=== PATIENT | male | born 1985 | race Caucasian/White ===

== ENCOUNTER 2016-07-31 06:31 | Inpatient (IN) | payer OTHER, MEDICAID ==
[~2016-07-31] VITALS: Ht 175.3 cm; Wt 79.5 kg
[2016-07-31 06:35] VITALS: BP 130/79; PULSE 120; RESP 18; O2SAT 97
--- NOTE | 2016-07-31 06:54 | ED.REPORT ---
HPI-Psychiatric Illness Date of Service Jul 31, 2016 ED Provider: Mkie Tobin DO Mr. Bradford is a 30 y/o man who presents today for mental evaluation. He reports a history of schizophrenia. "I'm ill." "I need a mental health eval." He has visual hallucinations. "I have cool stuff on my hands." He currently does not have auditory hallucinations. He does not have suicidal or homicidal ideation right now. He cut his wrist intentionally a few months ago but states that he did not want to kill himself and only hurt himself. No IV drug use today. Last IV drug use 3 months ago. He was released from assisted today and he was there for 29 days. HE vomited around 1:00 AM, no blood in his vomit. He has diarrhea at 3: 00 AM, no blood in his stool. He is not bleeding anywhere. Runny nose. He has been taking Zyprexa, but is unable to provide who was prescribing it. He is supposed to meet with someone from [facility] tomorrow. He reports that he has a place to stay right now. "I need marijuana." He has papers with him from [facility] about group homes and homeless shelters. Nursing Notes Stated Complaint: MENTAL EVAL Chief Complaint: Psychiatric Complaint Nursing Notes Reviewed: Yes Allergies: Coded Allergies: No Known Allergies (Unverified , 07/31/16) General Time Seen by MD: 06:49 Chief Complaint Hallucinations, visual Hx Obtained From: Patient Associated with: Reports: Agitation, Anxiety, Denies: Fever, Illicit drug use, Incoherence, Violence Risk-Psychiatric Illness Suicide Risk Stratification Suicide Risk Factors - Adult: : Prior psych admission: Substance abuse ( marijuana)No: Access to firearms, Alcohol use, Close associate suicide, Family Hx of Suicide, Previous attempt RF Statements: Risk factors reviewed Past Medical History Past Medical History Substance abuse Past Surgical History None reported Smoking History Current Every Day Smoker Social History Alcohol Use: Denies alcohol use Drug Use: Meth Ambulatory Status Independent Review of Systems Basic Review of Systems Eyes: No discharge ENT: No nasal congestion, No pharyngeal pain : No dysuria Musculoskeletal: No extremity pain Hematologic: No bleeding Allergy / Immune: No allergy Constitutional: Denies: Chills, Fever Respiratory: Denies: Non-productive cough, Shortness of breath Cardiovascular: Denies: Chest pain GI: Reports: Abdominal pain (periumbilical yesterday, resolved), Diarrhea, Vomiting, Denies: Constipation Neurologic: Denies: Headache Psychiatric: Reports: Anxiety, Hallucinations, auditory, Hallucinations, visual , Denies: Suicidal ideation Physical Exam Initial Vital Signs Vital Signs (First) Date Time Temp Pulse Resp B/P Pulse Ox O2 Delivery O2 Flow Rate FiO2 07/31/16 06:35 37.1 120 18 130/79 97 Room Air Initial VS: Reviewed Head / Eyes: Atraumatic, Normocephalic, PERRL ENT: Mucous membranes moist, Conjunctiva normal, No scleral icterus Neck: Supple, Non-tender, Full range of motion Respiratory: Breath sounds normal, Clear to auscultation, No respiratory distress Cardiovascular: Regular rate & rhythm, Heart sounds normal, Intact distal pulses Abdomen / GI: Soft, Non-tender, No guarding, No rebound, No distention Lymphatic: No lymphadenopathy Extremities: Vascular intact, Neuro intact, No swelling, No tenderness Skin: Warm, Dry, No cyanosis Psychiatric: Not suicidal, Not homicidal Abnormal Mood/Affect: Positive: Anxious, Flight of ideas Abnormal Thinking / Perception: Positive: Hallucinations, visual (seeing things on his hands), Tangential thinking Interpretation & Diagnostics Interpretation & Diagnostics: Urine tox dip: Benzodiazepines (BZO) Negative Barbituates (BAR) Negative Cocaine (JEANNETTE) Negative Marijuana (THC) Positive Methamphetamine (MET) Negative Opiates (OPI) Negative Methadone (MTD) Negative Tricyclic Antidepressants (TCA) Negative Oxycodone (OXY) Negative Ecstasy (MDMA) Negative Phencyclidine (PCP) Negative Amphetamines (AMP) Negative Alcohol breathilizer: 0 Lab Results Interpretation Result Diagram: 07/31/16 0706 07/31/16 0706 Test 07/31/16 07:06 White Blood Count 12.3th/mm3 (3.8-10.1) Red Blood Count 3.83mil/mm3 (4.40-5.80) Hemoglobin 11.7g/dL (13.8-17.2) Hematocrit 34.9% (41.0-50.0) Mean Corpuscular Volume 91.1fL (81-100) Mean Corpuscular Hemoglobin 30.5pg (27.0-35.0) Mean Corpuscular Hemoglobin Concent 33.5% (32.0-37.0) Red Cell Distribution Width 11.8% (12.3-15.4) Platelet Count 178bil/L (150-400) Neutrophils (%) (Auto) 67.4% (40-74) Lymphocytes (%) (Auto) 16.2% (14-46) Monocytes (%) (Auto) 14.1% (4-12) Eosinophils (%) (Auto) 1.7% (0-5) Basophils (%) (Auto) 0.4% (0-3) Sodium Level 144mEq/L (134-144) Potassium Level 3.9mEq/L (3.5-5.2) Chloride Level 105mEq/L (97-108) Carbon Dioxide Level 27mmol/L (18-29) Blood Urea Nitrogen 14mg/dL (6-20) Creatinine 0.95mg/dL (0.76-1.27) Estimat Glomerular Filtration Rate 100mL/min (>59) Glucose Level 110mg/dL (60-99) Calcium Level 9.0mg/dL (8.5-10.1) Total Bilirubin 0.2mg/dL (0.0-1.2) Aspartate Amino Transf (AST/SGOT) 49U/L (0-50) Alanine Aminotransferase (ALT/SGPT) 62U/L (0-44) Alkaline Phosphatase 69U/L (25-150) Total Protein 6.5g/dL (6.4-8.4) Albumin 4.0g/dL (3.4-5.0) Thyroid Stimulating Hormone (TSH) 3.500uIU/mL (0.450-4.500) Hold Gracia Top Tube Received (Received) Re-Eval/Medical Decision Med Decision/Clinical Course 1. Visual hallucinations/acute psychosis -FERRY PILOT consultation -Awaiting possible inpatient admission -CBC shows mildly elevated WBC and mildly low RBC, Hgb, HCT. Pt does not report any bleeding. -CMP normal except for mildly elevated ALT -UDS is positive for marijuana -Alcohol breathilizer is 0 Consultation : Consulted With: dairy feed worker DDx: schizophrenia, schizoaffective disorder, acute psychosis, bipolar disorder, substance abuse, medication noncompliance, anxiety, depression, personality disorder Discharge & Departure Impression: Primary Impression: Bipolar disorder Active/Remission status: currently active Psychotic features: with psychotic features )( Condition at Discharge: Clear for psych facility Referrals: NOPCP (PCP) Care Transferred to: [facility] Transferred at: 15:00 Attending Statement The patient was seen and examined together with Dr. Meraz on 07/31/16 and I have added additional information to the note above Tabitha Meraz DO Jul 31, 2016 06:54 Mike Tobin DO Jul 31, 2016 14:56
[2016-07-31 07:22] LABS: BASOPHILS % (AUTO) 0.4 % (0-3); EOSINOPHILS % (AUTO) 1.7 % (0-5); MONOCYTES % (AUTO) 14.1 % (4-12); Mean Corpuscular Hemoglobin 30.5 pg (27.0-35.0); Mean Corpuscular Volume 91.1 fL (81-100); NEUTROPHILS % (AUTO) 67.4 % (40-74); Platelet Count 178 bil/L (150-400)
[2016-07-31 12:34] VITALS: BP 118/74; PULSE 95; O2SAT 99
[2016-07-31] MEDS ORDERED: OLAN20TA16 PO (15:13)
[2016-07-31 19:32] VITALS: BP 116/68; PULSE 89; RESP 16; O2SAT 98
[2016-07-31] MEDS ORDERED: Alum-Mag Hydrox-Simeth 30 mL Suspension PO PRN (22:50)
[2016-07-31] MEDS ORDERED: Magnesium Hydroxide 10 mL Oral Concentration PO PRN (22:50)
[2016-07-31] MEDS ORDERED: hydrOXYzine Pamoate 25 mg Capsule PO PRN (22:50)
--- NOTE | 2016-08-01 04:03 | NUR ---
Nursing Admit note. Pt noted to arrive from our ED via WC with security and [facility]HA at 2049. Pt is a voluntary status with approval of six days by AMBRE Becker with review of the of this month. Pt recently out of [facility] after 29 days. Reportedly pt has been paying off fines for probation crimes and for robbery and methamphetamine possession. Pt reports increased A/V hallucinations over the last couple of months. Pt has history of Schizophrenia. Patients only medicaiton at this time was started in [facility], Zyprexa 20mg QD HS. Pt presents manic, grandiose, tangential thinking and responding to internal stimuli. speaks with very soft voice with obvious difficulty tracking conversation. Pt signed all admission paper work in ED with MHA and assisted with nursing assessment to his best ability. Pt to sleep at 2214 after requesting and receiving snacks. Pt medicated with Zyprexa in ED prior to transfer. Pt reports he has a home to go to after discharge in [place] and sees a stippler here in [facility] through [facility] Patient rates anxiety=3/10, Depression 4/10, denies Si/Hi ideation, sleeps 6-8 hours daily, smokes 1ppd, and very much wants help with medication titration.
--- NOTE | 2016-08-01 05:07 | NUR ---
Observations 1900 to 0700 Pt arrived on the floor at 20:50 and was able to compete the entire intake process. Pt ate multiple snacks before going to his room for the night. Pt was social when he was out in the DR. Pt first appeared asleep at 22:15 and was observed every 15 minutes through the night as directed.
[2016-08-01 10:36] VITALS: BP 139/82; PULSE 106; RESP 16
--- NOTE | 2016-08-01 12:38 | NUR ---
Nursing Day Shift- S- "I'm fine." O- Pt. was asleep at the start of the day shift. He awoke for breakfast after sleeping a reported 7+ hours. Pt. initially appeared cooperative and social. He eat well. about noon Pt. was asked again how he was doing, at that time he gave a brief delayed response, while appearing vigilant then watchful of staff. Ativan and Zyprexa was offered and declined. Pt. returned to his room and could be heard appearing to respond to internal stimulation while yelling and swearing. A- Increased paranoia and agitation. Declining offered PRN medications. P- Cont. to monitor closely. Inform MD when he is available. Addendum: 08/01/16 at 1349 by ANGEL HAWKINS RN Pt. has requested AMA discharge from the MD.
--- NOTE | 2016-08-01 15:29 | NUR ---
Case Management/UR: Spoke with DOC Jewelry Finisher Tye Short and verified that pt. is admitted. Evangelina Randle RN
[2016-08-01] MEDS: LORazepam 1 mg Tablet PO PRN (16:08)
[2016-08-01] MEDS ORDERED: Benzocaine-Menthol Lozenge 2/Pkg PO PRN (17:00)
--- NOTE | 2016-08-01 18:26 | NUR ---
Observations 0900 to 2130 Pt affect and mood was anxious, ambivalent, unpredictable and preoccupied. Pt speech and eye contact was poor. Pt was in [place] most of the day. Pt declined to attend group and unit activities. Pt attended community meeting and set a daily goal. Pt stated that his goal was to stay positive. Pt was unsocial with staff and peers. Pt paced the hallway listening to music on the headphones. Pt attended meals in D.R. and ate 100% of all meals. Pt ate snacks. Pt maintained behavior throughout the shift. Pt was polite, pleasant and cooperative. Pt was observed every 15 minutes throughout the shift as ordered.
--- NOTE | 2016-08-01 19:06 | HP ---
[address] [address] HISTORY AND PHYSICAL PATIENT: TONNY COYLE : 1985 MR#: [id number] ADMIT: 07/31/2016 JOB ID: [id number] DATE: 07/31/2016 IDENTIFYING DATA: The patient is a 30-year-old male who presented with delusions following recent discharge from [facility] and was requesting voluntary admission. The patient was subsequently admitted on a voluntary basis to the [facility]. CHIEF COMPLAINT: "I want to give a test drive on Ritalin, I think I needed it and instead I went to long-term. I need Ritalin. I have been through a lot. I hear voices but they are real. Throughout the day it is easier to defend myself with marijuana with my good principles." HISTORY OF PRESENT ILLNESS: The patient is a somewhat difficult historian and is focused on obtaining either Ritalin or Adderall. According to the emergency department social work notes, the patient reported having an "attention disability device" implanted into his head. 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 The patient apparently called once to [facility] in [place] on June 05, 2016 after release from [facility] but had not made further contact. He also was seen in the emergency department on June 26, 2016 for a fit for detention evaluation and was taken to the [facility] once medically cleared. The patient reports that he was recently released from the [facility]. He was initially started on olanzapine 10 mg in the detention and titrated to 20 mg at bedtime. He reports that he has taken this medication throughout his stay at the [facility]. He denies symptoms of bipolar disorder or PTSD. Regarding depression, he states "People are being very negative about my past." He also states that he "hates pornography." He reports his sleep is all right, his appetite is increased and his energy is decreased. PAST PSYCHIATRIC HISTORY: Outpatient: He is followed by [facility] and his telephonic case manager is Vega Alex. Inpatient: He reports 2-4 hospitalizations including this one. He reports also being housed in the special offender unit at [facility] for two and a half years. While he was there, he received aripiprazole 15 mg. Past psychiatric medications have included aripiprazole, citalopram, olanzapine, divalproex, risperidone and quetiapine. He reported that he did not like these medications or they were ineffective and would not take them again. He does report that he would like a trial of Adderall and Ritalin. He reports a couple of suicide attempts in the past. His 1st when he was 20 when he planned to shoot himself but did not. Two to three months ago, he cut his left wrist while in detention which required suturing. He denies a history of deliberate self- injurious behavior outside of the above. FAMILY PSYCHIATRIC HISTORY: Unknown. There is no family history of completed suicide. Family history of substance use is significant for alcohol. Family medical illness significant for a mother with cancer. SUBSTANCE USE HISTORY: The patient reports using marijuana the night prior to admission and a few months before that. He knowledges that this is in violation of his parole. He did inform his policy officer of same. He denies cocaine. He reports his last methamphetamine was two months ago. He denies any LSD or psilocybin mushrooms. He does endorse IV drug abuse in the past and reports that he tested negative for HIV and hepatitis. His last substance use treatment was eight years ago. SOCIAL HISTORY: The patient was born in [place], [place] and raised in [place] when his parents moved there when he was 10. He has one brother and two sisters and is the 2nd oldest child. He went through the 11th grade and got a GED and would eventually like to become a travel physical therapist or general dentist. He reported being a loner while in high school. He has never been and is not currently in a relationship, but he has a 12 or 13-year-old boy which he had when he was 18. The child lives with his mother and he had no contact. 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 He receives [facility] funding of approximately 200 dollars plus food stamps per month. He reports that he may have DOC housing in [place] in the next few days. He denies a history of physical, sexual or emotional abuse. LEGAL HISTORY: Significant for convictions for robbery in the 1st degree, robbery in the second-degree, assault in the 3rd degree two counts, and possession of a controlled substance one count. He is currently on DOC probation for a robbery in the 1st degree and possession of controlled substance for the next 16 months. PAST MEDICAL HISTORY: He reports spine injuries six years ago while in detention. He reports otherwise being healthy. 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 He would not specify how these occurred. LABORATORY FINDINGS: CBC within normal limits except for WBC of 12.3, RBCs 3.83, hemoglobin 11.7, hematocrit 34.9, RDW 11.8, monocytes 14.1%. CMP within normal limits except for a glucose of 110, an ALT of 62, TSH of 3.5. Urine tox screen was positive for marijuana. Breathalyzer was 0. CURRENT MEDICATIONS: Olanzapine 20 mg nightly. ALLERGIES: No known drug allergies. MENTAL STATUS EXAMINATION: Appearance: The patient is a somewhat unkempt-appearing male with unwashed appearing hair but is clean-shaven. He is wearing hospital issue pants and a sweatshirt with the cameron pulled up over his head exposing only his face and some hair. Behavior: The patient is initially fairly pleasant with good eye contact. When informed that he would not receive Adderall or Ritalin due to his psychotic disorder, he stated that he would like to be discharged and terminated the interview. After speaking with his DOC officer, he returned to complete the interview. Mood: "A little decent." Affect: Smiles inappropriately. Speech: Poverty of speech at times, at others circumstantial and rambling. Content of thought: He denies suicidal or homicidal ideation. The patient endorses auditory hallucinations, telepathy and thought broadcasting. He denies thought insertion or thought withdrawal. He endorses ideas of reference regarding the television where they can "project their thoughts directly from the TV." He denies visual hallucinations. He reports his anxiety is 8 to 9/10 and his depression is 4/10. Thought processes: Somewhat disorganized at times, at others more goal- directed. Overall poverty of speech. Insight: Poor. Judgment: Impaired. Memory: Unable to be assessed but grossly intact. Concentration: Unable to be assessed, but grossly intact. Intelligence: Appears to be in the average range based upon history and vocabulary. Orientation: He is alert and oriented to [facility]. Sensorium: Overall intact without clear evidence of delirium or dementia. IMPRESSION: The patient is a 30-year-old male with a history of methamphetamine and marijuana use who also appears to have a chronic psychotic disorder consistent with schizophrenia or schizoaffective disorder possibly bipolar type. There is also an indication he may have depression, although he does not appear depressed at this time. The patient initially terminated the interview early with a request to leave AMA, spoke with his DOC sponsor and requested to remain in the hospital. We discussed the risks and benefits of starting Geodon or ziprasidone and the patient was agreeable. We discussed cross tapering from olanzapine to ziprasidone and he again was agreeable. PROVISIONAL DIAGNOSES: [place] I 1. Psychotic disorder, unspecified. 2. Methamphetamine use disorder. 3. Marijuana use disorder. [place] II Deferred. [place] III None acute. [place] IV Moderate. [place] V Global Assessment of Functioning 25. PLAN: 1. The patient will be admitted to the inpatient unit and will be provided a safe and secure environment. 2. The patient is currently denying acute active suicidality and is not in need of one-to-one at this time. He agrees to notify us should he have any acute suicidal or homicidal ideation. 3. The patient is encouraged to participate with group and milieu activities. 4. The patient will be seen by the treatment team on a daily basis to assess symptoms, side effects and response to treatment. 5. Olanzapine will be decreased to 10 mg nightly. 6. Ziprasidone 60 mg twice daily will be started. The patient was provided informed consent including the risk of tardive dyskinesia and metabolic syndrome. 7. The patient will not be started on amphetamines given his acute psychosis as well as history of methamphetamine use. 8. Zolpidem 5 mg p.o. nightly p.r.n. insomnia. May repeat x1. 9. Lorazepam 1-2 mg q.4 h. p.r.n. anxiety or agitation. 10. Anticipated length of stay is 5-7 days. MTDD
--- NOTE | 2016-08-01 22:47 | NUR ---
Nursing Notes [id number] O: Visible on unit, but not interacting with peers. Walking with head phones on. A: Quiet, restless, cooperative, disorganized, tense at times. No outbursts this shift. P: Monitor for response to treatment/medications. Q15 min checks for safety. Follow plan of care.
--- NOTE | 2016-08-02 04:38 | NUR ---
nursing, nights, 11-7 s/o- has appeared to sleep after 2129 during q 15 minute assessments. a- no apparent distress. p- monitor behavior/emotional state, quality, times and amount of sleep, use and effect of medication. rosetta
--- NOTE | 2016-08-02 05:28 | NUR ---
Out on unit some. Pt noted being more positive with med changes. Asleep at 2130. Pt observed every 15 minutes as ordered.
[2016-08-02 08:10] VITALS: BP 120/79; PULSE 86; RESP 18
[2016-08-02] MEDS: LORazepam 1 mg Tablet PO PRN (09:45)
--- NOTE | 2016-08-02 12:51 | NUR ---
Nursing Day Shift- S- "Maybe I'll go today. I would go to [facility]. Let me call first and see." O- Pt. had slept 8+ hours per report. He was in the DR watching TV before breakfast. He eat well, then walked in the hallways while listening to music. Pt. requested discharge from the [facility]. Pt. stated the above when asked if would like to discharge. He was unable to confirm housing. Pt. spoke with the MD, and agreed to stay. He requested and was given Ativan 2 mg at 0945 for anxiety he rated as "Bad." The Pt. later reported it had been helpful. Pt. had brief responses, and did not answer questions about hallucinations. A- Pt. appears tense and paranoid. Able to tend to his housing and ADL's apropriately. P- Cont. BHTP. Addendum: 08/02/16 at 1516 by ANGEL HAWKINS RN Pt. was able to contact his president and chief operating officer. Plans were made for Pt's discharge today at 1530. He will be transported by Tye Short, to [facility], then [facility] for housing. Pt. expressed an understanding of the follow up plans and medications. He will be sent out with the prescriptions. He rated his anxiety as 2/10 and denied suicidal thoughts. The prescription will be handed over to the president and chief operating officer.
--- NOTE | 2016-08-02 14:20 | PCM.DIMED ---
Discharge Instructions Date of Service Aug 02, 2016 Dates of Hospitalization Jul 31, 2016 at 20:01 Discharge Diagnosis Discharge Diagnosis [place] I 1. Psychotic disorder, unspecified. 2. Methamphetamine use disorder. 3. Marijuana use disorder. [place] II Deferred. [place] III None acute. [place] IV Moderate. [place] V Global Assessment of Functioning 40. Test Results Laboratory Tests 72 Hours Test 07/31/16 07:06 White Blood Count 12.3th/mm3 (3.8-10.1) Red Blood Count 3.83mil/mm3 (4.40-5.80) Hemoglobin 11.7g/dL (13.8-17.2) Hematocrit 34.9% (41.0-50.0) Mean Corpuscular Volume 91.1fL (81-100) Mean Corpuscular Hemoglobin 30.5pg (27.0-35.0) Mean Corpuscular Hemoglobin Concent 33.5% (32.0-37.0) Red Cell Distribution Width 11.8% (12.3-15.4) Platelet Count 178bil/L (150-400) Neutrophils (%) (Auto) 67.4% (40-74) Lymphocytes (%) (Auto) 16.2% (14-46) Monocytes (%) (Auto) 14.1% (4-12) Eosinophils (%) (Auto) 1.7% (0-5) Basophils (%) (Auto) 0.4% (0-3) Sodium Level 144mEq/L (134-144) Potassium Level 3.9mEq/L (3.5-5.2) Chloride Level 105mEq/L (97-108) Carbon Dioxide Level 27mmol/L (18-29) Blood Urea Nitrogen 14mg/dL (6-20) Creatinine 0.95mg/dL (0.76-1.27) Estimat Glomerular Filtration Rate 100mL/min (>59) Glucose Level 110mg/dL (60-99) Calcium Level 9.0mg/dL (8.5-10.1) Total Bilirubin 0.2mg/dL (0.0-1.2) Aspartate Amino Transf (AST/SGOT) 49U/L (0-50) Alanine Aminotransferase (ALT/SGPT) 62U/L (0-44) Alkaline Phosphatase 69U/L (25-150) Total Protein 6.5g/dL (6.4-8.4) Albumin 4.0g/dL (3.4-5.0) Thyroid Stimulating Hormone (TSH) 3.500uIU/mL (0.450-4.500) Hold Gracia Top Tube Received (Received) Diet No restrictions Activity No restrictions Patient Instructions Should you have any thoughts of harming yourself or others, please call the crisis line, your provider, 911, or go to the nearest Emergency Department. Do not change or discontinue your medications without discussing with your provider. You have been given a prescription for 14 days supply of your medication Follow-up plan Please follow counselor discharge instructions. Your OR spring encaser is Minerva Lopez. Follow-up with PCP in: 1 week ([facility]) Johan Pérez MD Aug 02, 2016 14:20
[2016-08-02] MEDS ORDERED: ZIPR40CA2 PO (14:22)
[2016-08-02] MEDS ORDERED: OLAN5TAB PO (14:22)
[2016-08-02] MEDS ORDERED: HYDR-3797 PO (14:22)
--- NOTE | 2016-08-02 15:25 | NUR ---
Nurses Discharge Note Patient discharged with all belongings,follow-up appointments and prescriptions. Patient was picked up by his event security officer in good spirits and control.
--- NOTE | 2016-08-02 18:13 | PCM.DC.MED ---
Discharge Summary Date of Service Aug 02, 2016 Dates of Hospitalization Date of Hospital Admission Jul 31, 2016 at 20:01 Date of Discharge: Aug 02, 2016 Providers: Admitting Physician: Johan Hendricks MD Primary Care Physician: Sin Attending Physician: Johan Hendricks MD Diagnosis at Time of Discharge Diagnosis at Time of Discharge [place] I 1. Psychotic disorder, unspecified. 2. Methamphetamine use disorder. 3. Marijuana use disorder. [place] II Deferred. [place] III None acute. [place] IV Moderate. [place] V Global Assessment of Functioning 40. Brief History IDENTIFYING DATA: The patient is a 30-year-old male who presented with delusions following recent discharge from [facility] and was requesting voluntary admission. The patient [facility] CHIEF COMPLAINT: "I want to give a test drive on Ritalin, I think I needed it and instead I went to [facility]. I need Ritalin. I have been through a lot. I hear voices but they are real. Throughout the day it is easier to defend myself with marijuana with my good principles." HISTORY OF PRESENT ILLNESS: The patient is a somewhat difficult historian and is focused on obtaining either Ritalin or Adderall. According to the emergency department social work notes, the patient reported having an "attention disability device" implanted into his head. 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 The patient apparently called once to [facility] in [place] on June 05, 2016 after release from [facility] but had not made further contact. He also was seen in the emergency department on June 26, 2016 for a fit for alf evaluation and was taken to the [facility] once medically cleared. The patient reports that he was recently released from the [facility]. He was initially started on olanzapine 10 mg in the alf and titrated to 20 mg at bedtime. He reports that he has taken this medication throughout his stay at the [facility]. He denies symptoms of bipolar disorder or PTSD. Regarding depression, he states "People are being very negative about my past." He also states that he "hates pornography." He reports his sleep is all right, his appetite is increased and his energy is decreased. PAST PSYCHIATRIC HISTORY: Outpatient: He is followed by [facility], [place] and his disease case manager is Vegalaura Alex. Inpatient: He reports 2-4 hospitalizations including this one. He reports also being housed in the special offender unit at [facility] for two and a half years. While he was there, he received aripiprazole 15 mg. Past psychiatric medications have included Aripiprazole, citalopram, olanzapine, divalproex, risperidone and quetiapine. He reported that he did not like these medications or they were ineffective and would not take them again. He does report that he would like a trial of Adderall and Ritalin. He reports a couple of suicide attempts in the past. His 1st when he was 20 when he planned to shoot himself but did not. Two to three months ago, he cut his left wrist while in alf which required suturing. He denies a history of deliberate self- injurious behavior outside of the above. Hospital Course The patient initially terminated the interview early with a request to leave AMA , spoke with his DOC sponsor and requested to remain on the unit. We discussed the risks and benefits of ziprasidone including tardive dyskinesia and metabolic syndrome and the patient was agreeable to a cross taper. He was initiated on ziprasidone 60 mg twice daily and olanzapine was reduced to 10 mg nightly. The following day, the patient reported that he was "feeling good, feeling focused." He denied side effects or restlessness. He reported that he could "barely hear them" regarding auditory hallucinations. We discussed increasing ziprasidone to 80 mg twice daily and reducing olanzapine to 5 mg at bedtime. Regarding his prior report of having gills, he denied this. Regarding reporting being a hybrid, he stated that he was "a hybrid, a higher state human being." At the time of discharge, the patient was reporting his mood was "good." Sleep was reported as "good," 8+ hours per staff. Appetite was reported as "good." His anxiety was reported as "apple high because I do not know where I am going to go." And depression as "a little bit". Regarding auditory hallucinations, he stated, "barely heard them all day." He denied visual hallucinations and any thought, intent or plan of hurting himself or others. He denied medication side effects. Exam Vital Signs (Last) Date Time Temp Pulse Resp B/P Pulse Ox O2 Delivery O2 Flow Rate FiO2 08/02/16 08:10 36.6 86 18 120/79 07/31/16 19:32 98 Room Air Exam Discharge Mental Status Exam: Appearance: appropriately dressed and groomed. Behavior: pleasant, cooperative, good eye contact. Speech: Normal rate, rhythm and tone. Mood: "Good" Affect: Appropriate Thought Processes: organized, linked and linear Thought content: denied current suicidal ideation, or homicidal ideation, visual hallucinations. Endorsed auditory hallucinations as above. Delusions as noted above. Insight/judgment: insight and judgment appear to be improving. Intelligence: average range based on vocabulary and history. Memory/concentration: grossly intact, but not formally tested Sensorium: alert, oriented, no signs of delirium or dementia.. Physical Examination: AIMS Score 0 Test 07/31/16 07:06 White Blood Count 12.3th/mm3 (3.8-10.1) Red Blood Count 3.83mil/mm3 (4.40-5.80) Hemoglobin 11.7g/dL (13.8-17.2) Hematocrit 34.9% (41.0-50.0) Mean Corpuscular Volume 91.1fL (81-100) Mean Corpuscular Hemoglobin 30.5pg (27.0-35.0) Mean Corpuscular Hemoglobin Concent 33.5% (32.0-37.0) Red Cell Distribution Width 11.8% (12.3-15.4) Platelet Count 178bil/L (150-400) Neutrophils (%) (Auto) 67.4% (40-74) Lymphocytes (%) (Auto) 16.2% (14-46) Monocytes (%) (Auto) 14.1% (4-12) Eosinophils (%) (Auto) 1.7% (0-5) Basophils (%) (Auto) 0.4% (0-3) Sodium Level 144mEq/L (134-144) Potassium Level 3.9mEq/L (3.5-5.2) Chloride Level 105mEq/L (97-108) Carbon Dioxide Level 27mmol/L (18-29) Blood Urea Nitrogen 14mg/dL (6-20) Creatinine 0.95mg/dL (0.76-1.27) Estimat Glomerular Filtration Rate 100mL/min (>59) Glucose Level 110mg/dL (60-99) Calcium Level 9.0mg/dL (8.5-10.1) Total Bilirubin 0.2mg/dL (0.0-1.2) Aspartate Amino Transf (AST/SGOT) 49U/L (0-50) Alanine Aminotransferase (ALT/SGPT) 62U/L (0-44) Alkaline Phosphatase 69U/L (25-150) Total Protein 6.5g/dL (6.4-8.4) Albumin 4.0g/dL (3.4-5.0) Thyroid Stimulating Hormone (TSH) 3.500uIU/mL (0.450-4.500) Hold Gracia Top Tube Received (Received) Discharge Medications Discharge Medications Olanzapine (Olanzapine) 5 Mg Tablet 5 MG PO HS Prescribed by: JOHAN HENDRICKS MD Ziprasidone (Geodon) 40 Mg Capsule 80 MG PO BIDWM Prescribed by: JOHAN HENDRICKS MD As needed Hydroxyzine Pamoate (HydrOXYzine Pamoate) 25 Mg Capsule 50 MG PO Q4H PRN PRN anxiety/agitation/insomnia Prescribed by: JOHAN HENDRICKS MD Followup Plan Disposition: The patient was requesting discharge with no indication for referral to [facility] for involuntary hospitalization The patient verbally consented to take the prescribed medications. The patient verbally expressed understanding of the risks, benefits, alternative treatment options, and risks of not taking the prescribed medication. The patient verbally expressed understanding of the medication instructions, that he will adhere to the prescribed medication, and that Follow-up plan Please follow counselor discharge instructions. Your OR disease case manager is Minerva Lopez. Discharge Diet: No restrictions Discharge Activity: No restrictions Patient Instructions Should you have any thoughts of harming yourself or others, please call the crisis line, your provider, 911, or go to the nearest Emergency Department. Do not change or discontinue your medications without discussing with your provider. You have been given a prescription for 14 days supply of your medication Follow-up with PCP in: 1 week ([facility]) Johan Hendricks MD Aug 02, 2016 18:13
--- NOTE | 2016-08-02 20:01 | NUR ---
Newspaper Or Periodical Editor/Counselor: S/O: Patient slept 8+ hours last night as per staff. He denies S/I and H/I. He denies auditory and visual hallucinations. He did not rate depression and anxiety. Out-patient appointment will be with [facility] Minerva Lopez, date and time "To Be Determined" as scheduled by V[facility] from [facility]. A: Patient is cooperative, hopeful. P: Follow care plan coordinate out-patient providers.
== END 2016-08-02 15:25 | disposition home or self-care (01) | DRG 751 ==
LOC: SED 06:31 → MHC 19:50
PROVIDERS: ADMIT Psychiatry & Neurology Psychiatry; ATTEND Psychiatry & Neurology Psychiatry
DX: F23 Brief psychotic disorder (principal); F25.0 Schizoaffective disorder, bipolar type; Z91.19 Patient's noncompliance with other medical treatment and regimen; F17.200 Nicotine dependence, unspecified, uncomplicated; F60.9 Personality disorder, unspecified; F12.90 Cannabis use, unspecified, uncomplicated; F15.90 Other stimulant use, unspecified, uncomplicated; G47.00 Insomnia, unspecified; Z91.5 Personal history of self-harm